=== PATIENT | female | born 1960 | race Caucasian/White ===

== ENCOUNTER → 2017-08-03 | Day surgery (SDC) | payer BC ==
[~2017-08-03] MED LIST: Lactated Ringers 1,000 ML IV SCH; Propofol 200 MG/20 ML SDV IV ONE
--- NOTE | 2017-08-03 10:41 | OR ---
DATE OF OPERATION: 08/03/2017 PREOPERATIVE DIAGNOSIS: 1. DYSPHAGIA. 2. SCREENING COLONOSCOPY. POSTOPERATIVE DIAGNOSIS: 1. DYSPHAGIA. 2. SCREENING COLONOSCOPY. SURGEON: Anjum Pendleton MD PROCEDURE: 1. EGD WITH LETICIA. 2. FULL-LENGTH COLONOSCOPY. ANESTHESIA: [employer] ATTEND[employer] due to history of GERD and dysphagia. COMPLICATIONS: None. SPECIMEN: Antral LETICIA. FINDINGS: 1. Full-length EGD. 2. Small hiatal hernia with nonobstructing Schatzki's ring. No distal esophagitis, stricturing, ulceration, or Lewis's changes. 3. Normal full-length colonoscopy. RECOMMENDATIONS: We would recommend a trial of proton pump therapy for symptom control. We would recommend a routine 10-year followup colonoscopy. INDICATIONS: Ms. Serna was in to see her primary provider. She is due for a screening colonoscopy. She does admit to very infrequent issues with feeling like certain foods get stuck in her lower chest. She was sent for upper and lower endoscopy. DESCRIPTION OF PROCEDURE: The patient was prepped and draped, placed in the left lateral decubitus position. A lubricated Olympus gastroscope was inserted over a bit and advanced to cricopharyngeus area and easily intubated in the esophagus. Esophageal lining was benign in its entire course. No rings for web seen. The EG junction was located around 35 cm. It was associated with a small to mild hiatal hernia and a nonobstructing Schatzki's ring at the distal portion. No distal esophagitis, stricturing, ulceration, or Lewis's changes were seen. The scope was intubated into the stomach through the pylorus into the second portion of the duodenum. This and the duodenal bulb were benign. Scope was brought back into the stomach and retroflexed. The upper fundus and cardia were unremarkable. Upon straightening, thorough evaluation of the fundus and antrum showed no polyps, masses, ulcerations, or signs of peptic ulcer disease. A LETICIA test was obtained. Air was suctioned. The scope was removed without complication. A lubricated Olympus colonoscope was then inserted and easily advanced to the cecum. Direct visualization of the ileocecal valve and appendiceal orifice was accomplished. The bowel prep was adequate. Upon withdrawal of the scope, the cecum, ascending, and transverse colon were completely benign. Throughout the entire left colon, I could find no signs of any polyps, mass, ulceration, or bleeding sites. No vascular abnormalities or signs of colitis. No signs of any significant diverticular disease. The rectal vault was benign. Retroflexion of the scope in the rectum showed no anal lesions. Air was suctioned. The scope was removed without complication. JESSICA/LAMINE /[id number]
--- NOTE | 2017-08-03 10:45 | LETTER ---
08/03/2017 Oliver Mccormick, [facility] [address] [place] [address] RE: AISHA ALVA : 1960 Dear Oliver: Mrs. Aisha Alva just had her upper and lower endoscopy. She does not have any obstructing lesions in her esophagus. She got a small to mild sized hiatal hernia with what looks like an early Schatzki's ring forming. It is nonobstructing at this time. I am sure most of her symptoms are more related to the hernia depending on its status when she eats. I would recommend a short trial of proton pump therapy and see if it improves her symptoms, which it likely will. It sounds like she is very infrequently bothered by this, certainly 10 years from now that might be a different story. Colonoscopy was completely normal. I will be sending you a copy of the op note. If you have any questions, give me a holler. Thanks for the referral. Respectfully, MIKE /[id number]
== END ==
LOC: CC.SDS 08:38
PROVIDERS: ATTEND Family Medicine
DX: K22.2 Esophageal obstruction (principal); K44.9 Diaphragmatic hernia without obstruction or gangrene; Z12.11 Encounter for screening for malignant neoplasm of colon; D50.9 Iron deficiency anemia, unspecified; F32.9 Major depressive disorder, single episode, unspecified; Z79.899 Other long term (current) drug therapy
CPT/HCPCS: 43239; 45378; 87081; J7120; J2704